=== PATIENT | female | born 1935 | race Caucasian/White ===

== ENCOUNTER 2019-06-22 09:02 | Observation (INO) ==
--- NOTE | 2019-06-22 09:22 | Emergency Department Note ---
Disposition Clinical Impression: Syncope Qualifiers: Syncope type: unspecified Qualified Code(s): R55 - Syncope and collapse Disposition: Admitted As Inpatient Condition: Good Time of Disposition: 11:02 General Adult HPI - General Chief complaint: ED Syncope Stated complaint: syncope Time Seen by Provider: 06/22/19 09:07 Source: patient, EMS Mode of arrival: EMS Limitations: no limitations Nursing Notes Reviewed: Yes Vital Signs Reviewed: Yes - History of Present Illness HPI Narrative: Patient is an 84-year-old female presenting with a syncopal episode. Patient currently stays at [facility], for the past 2-1/2 years, states that just prior to arrival arrival, she became very lightheaded and dizzy, while in her bathroom. When her bathroom she became lightheaded and dizzy, she sat down on the toilet, she then had a single episode for a few moments. Her aide came into the room, found her on the commode, then brought her to her bed. It was noted that she was slightly altered in mentation, with questionable neurological deficits. EMS was called. On EMSs arrival, patient had no neurological deficits, she was alert and oriented and patient's baseline. On arrival here, patient states that she does recall the event, she does state that she did have loss of consciousness, she did not hit her head. No recent falls or injury. She currently states she feels back to baseline with no weakness, numbness, tingling or change in sensation. Her son is here at bedside, states the patient appears to be at patient's baseline. She denies any chest pain, shortness of breath, palpitations, nausea or vomiting no abdominal pain. She does state that she has been having some dysuria and has history of UTIs. I did speak with [facility], per nursing staff, patient had an unwitnessed syncopal episode, she was found in her bathroom sitting on the toilet, unresponsive with decreased respirations, they were able to with assistance get the patient into her bed, at that point in time she stayed altered, confused, was unable to recognize others in the room, noted that her left face was slightly drooped in her left arm was slightly weak, and told this episode lasted from 5-10 minutes, by the time EMS arrived her symptoms had completely resolved. Patient's blood pressure at that time was 80/40, glucose is 123. Patient has no history of similar symptoms or episodes like this in the past. Pain Scale: 0 - Related Data Home Medications Medication Instructions Recorded Confirmed metFORMIN [Glucophage] 1,000 mg PO BID 11/09/15 06/22/19 Fludrocortisone Acetate [Florinef] 0.1 mg PO DAILY 12/19/15 06/22/19 diazePAM [Valium] 2.5 mg PO TID 12/19/15 09/09/16 traMADol [Ultram] 50 mg PO QID PRN 12/19/15 06/22/19 Ferrous Gluconate 324 mg PO DAILY 08/08/16 06/22/19 Acetaminophen [Non-Aspirin] 650 mg PO Q6H PRN 06/22/19 06/22/19 Aspirin 81 mg PO DAILY 06/22/19 06/22/19 Bacillus Coagulans/Inulin 1 each PO TID 06/22/19 06/22/19 [Probiotic with Prebiotic Caps] Diphenoxylate/Atropine [Lomotil 2 each PO QID PRN 06/22/19 06/22/19 2.5 mg/0.025 mg] Donepezil [Aricept] 10 mg PO DAILY 06/22/19 06/22/19 Guaifenesin [Mucinex] 600 mg PO BID 06/22/19 06/22/19 Ipratropium/Albuterol Neb [Duoneb] 3 ml IH Q6HR PRN 06/22/19 06/22/19 LORazepam [Ativan] 0.25 mg PO BID 06/22/19 06/22/19 Levothyroxine [Synthroid] 175 mcg PO QAM 06/22/19 06/22/19 Loperamide [Imodium] 2 mg PO Q4H PRN 06/22/19 06/22/19 Meclizine [Antivert] 12.5 mg PO TID 06/22/19 06/22/19 Potassium Chloride [Klor-Con 10] 20 meq PO DAILY 06/22/19 06/22/19 Vitamin B Complex [B Complex] 1 each PO DAILY 06/22/19 06/22/19 Previous Rx's Medication Instructions Recorded amLODIPine [Norvasc] 2.5 mg PO DAILY #30 tablet 09/12/16 Allergies Allergy/AdvReac Type Severity Reaction Status Date / Time captopril [From Capoten] Allergy See Verified 08/16/15 11:05 Comments clarithromycin [From Biaxin] Allergy See Verified 06/28/15 18:28 Comments Erythromycin Base Allergy See Verified 08/16/15 11:05 [From Erythrocin] Comments estrogens, conjugated Allergy See Verified 08/16/15 11:05 Comments gabapentin [From Neurontin] Allergy See Verified 08/16/15 11:05 Comments nitrofurantoin Allergy See Verified 08/16/15 11:05 [From Macrobid] Comments Sulfa (Sulfonamide Allergy Hives Verified 08/16/15 11:05 Antibiotics) All systems ED: reviewed and negative except as stated. Review of Systems: As Per HPI Constitutional: Denies: fever, chills ENT ED: Denies: congestion Cardiovascular: Denies: chest pain, palpitations Respiratory: Denies: cough, dyspnea, wheezes Gastrointestinal: Denies: abdominal pain, nausea, vomiting Genitourinary: Reports: dysuria. 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 No apparent distress. Follow commands. Appears stated age. Neck: No JVD. Trachea midline. Neck supple. Eyes: PERRL. No scleral icterus. HENT: Normocephalic and atraumatic. Moist mucus membranes. Cardiovascular: Regular rate and rhythm. Normal S1 and S2. No murmurs appreciated. Normal capillary refill. Extremities well perfused with 2+ distal pulses bilaterally. No edema. Pulmonary: Normal and equal breath sounds bilaterally, anteriorly and posteriorly. No wheezes, rales, or rhonchi. Not in respiratory distress. Speaks in full sentences. Abdomen: Soft, nondistended, without tenderness. No bruits or masses. No guarding or rebound. Neuro: Alert and oriented x3. No slurred speech. No focal deficits noted. Skin: No rashes noted on visualized skin. Musculoskeletal: No bony abnormalities visualized. Moves all extremities. Psych: Normal mood. Pleasant. Makes appropriate eye contact. - General General appearance: alert, in no apparent distress - Expanded Neurological Exam Patient oriented to: Present: person, place, time Cranial nerves: EOM function (II, III, IV, ): Normal, facial sensation (V): Normal, facial palsy (VII): Normal, spinal accessory function (XI): Normal, tongue deviation (XII): Normal Cerebellar function: finger to nose: Normal Motor strength - LUE: 5/5 Motor strength - RUE: 5/5 Motor strength - LLE: 5/5 Motor strength - RLE: 5/5 Upper motor neuron exam: chau neglect: Absent bilaterally, pronator drift: Absent bilaterally Sensory exam upper extremity: light touch: Normal Sensory exam lower extremity: light touch: Normal Coma Scale Eye Opening: Spontaneous Coma Scale Motor Response: Obeys Commands Coma Scale Verbal Response: Oriented Coma Scale Total: 15 - Psychiatric Psychiatric exam: Present: normal affect, normal mood - Skin Skin exam: Present: warm, dry, intact. Absent: rash Course Vital Signs Temperature 97.9 F 06/22/19 09:05 Pulse Rate 69 06/22/19 09:05 Respiratory Rate 15 06/22/19 09:05 Blood Pressure 130/51 06/22/19 09:05 O2 Sat by Pulse Oximetry 99 06/22/19 09:05 Temperature 97.9 F 06/22/19 09:05 Pulse Rate 75 06/22/19 11:54 Respiratory Rate 14 06/22/19 11:54 Blood Pressure 125/56 06/22/19 11:54 O2 Sat by Pulse Oximetry 98 06/22/19 11:54 Oxygen Delivery Oxygen Delivery Room Air Medical Decision Making - MDM Narrative Medical decision making narrative: Patient is an 84-year-old female who is presenting for syncopal episode. Patient currently residing [facility], I did speak with them and they stated the patient had a single episode, following bowel movement, when they arrived she had altered mental status with confusion lasting for 5-10 minutes, completely resolved by the time EMS had arrived. Per nursing staff, patient did have some left-sided facial droop as well as some left upper extremity weakness. On arrival here to our ER, patient is alert and oriented 3, in no acute distress, she is an NIH of 0, GCS of 15. Most likely patient had a vasovagal syncopal episode, however given report from nursing staff at [facility] the patient also had neurological deficits, concern for intracranial etiology. Laboratory work was reviewed as well as imaging including CT of the head and cxr Lab work is relatively unremarkable. CT of the head shows no acute intracranial changes. Chest x-ray shows no acute cardio or pulmonary findings. I did have discussion with the family as well as the patient regarding admission, they agree with admission for further evaluation and observation. - Medical Records Medical records reviewed: Yes I reviewed the patient's medical records. - Lab Data Lab results reviewed: Yes I reviewed the patient's lab results. Result diagrams: 06/22/19 09:26 06/22/19 09:26 Lab Results 06/22/19 06/22/19 06/22/19 Range/Units 09:26 09:26 09:26 WBC 8.9 (4.3-11.1) K/mcL RBC 3.58 L (3.82-4.97) M/mcL Hgb 11.5 (11.5-15.4) g/dL Hct 36.0 (35.3-44.9) % MCV 100.6 H (83.0-100.0) fL MCH 32.1 (28.0-33.3) pg MCHC 31.9 (31.6-35.5) g/dL RDW 12.4 (11.5-14.5) % Plt Count 258 (140-400) K/mcL MPV 8.7 L (9.4-12.4) fL Immature Gran % 0.2 (0-4) % Seg Neutrophils % 69.6 % Lymphocytes % 21.9 % Monocytes % 4.9 % Eosinophils % 3.1 % Basophils % 0.3 % Neutrophils # 6.2 (1.6-8.9) K/mcL Lymphocytes # 2.0 (0.6-4.6) K/mcL Monocytes # 0.4 (0.0-1.3) K/mcL Eosinophils # 0.3 (0.0-0.6) K/mcL Basophils # 0.0 (0.0-0.2) K/mcL PT 11.9 (9.4-12.1) Seconds INR 1.0 APTT 29.3 (26.0-36.0) Seconds Sodium 136 (136-145) mEq/L Potassium 3.6 (3.5-5.1) mEq/L Chloride 103 (98-107) mEq/L Carbon Dioxide 20 L (23-29) mEq/L BUN 19 (8-23) mg/dL Creatinine 1.15 (0.60-1.20) mg/dL Est GFR ( Amer) 55 L (> 60) Est GFR (Non-Af Amer) 45 L (> 60) BUN/Creatinine Ratio 17 (6-26) Glucose 292 H (70-105) mg/dL Calculated Osmolality 295 (280-300) Calcium 9.4 (8.6-10.3) mg/dL Troponin I < 0.03 (< 0.04) ng/mL TSH < 0.010 L (0.340-5.600) mcIU/mL Urine Color (Yellow) Urine Clarity (Clear) Urine pH (5.0-8.0) pH Units Ur Specific [place] (1.010-1.025) Urine Protein (Neg-Trace) mg/dL Urine Glucose (UA) (Normal) mg/dL Urine Ketones (Negative) mg/dL Urine Blood (Negative) Urine Nitrite (Negative) Urine Bilirubin (Negative) Urine Urobilinogen (Normal) mg/dL Ur Leukocyte Esterase (Negative) Urine Microscopic RBC (0-3) per hpf Urine Microscopic WBC (0-3) per hpf Ur Squamous Epith Cells (None-Few) per lpf Ur Renal Epithelial Cell (None-Few) per hpf Urine Bacteria (None-Few) per hpf Hyaline Casts (None-Few) per lpf 06/22/19 Range/Units 11:30 WBC (4.3-11.1) K/mcL RBC (3.82-4.97) M/mcL Hgb (11.5-15.4) g/dL Hct (35.3-44.9) % MCV (83.0-100.0) fL MCH (28.0-33.3) pg MCHC (31.6-35.5) g/dL RDW (11.5-14.5) % Plt Count (140-400) K/mcL MPV (9.4-12.4) fL Immature Gran % (0-4) % Seg Neutrophils % % Lymphocytes % % Monocytes % % Eosinophils % % Basophils % % Neutrophils # (1.6-8.9) K/mcL Lymphocytes # (0.6-4.6) K/mcL Monocytes # (0.0-1.3) K/mcL Eosinophils # (0.0-0.6) K/mcL Basophils # (0.0-0.2) K/mcL PT (9.4-12.1) Seconds INR APTT (26.0-36.0) Seconds Sodium (136-145) mEq/L Potassium (3.5-5.1) mEq/L Chloride (98-107) mEq/L Carbon Dioxide (23-29) mEq/L BUN (8-23) mg/dL Creatinine (0.60-1.20) mg/dL Est GFR ( Amer) (> 60) Est GFR (Non-Af Amer) (> 60) BUN/Creatinine Ratio (6-26) Glucose (70-105) mg/dL Calculated Osmolality (280-300) Calcium (8.6-10.3) mg/dL Troponin I (< 0.04) ng/mL TSH (0.340-5.600) mcIU/mL Urine Color Yellow (Yellow) Urine Clarity Cloudy A (Clear) Urine pH 5.0 (5.0-8.0) pH Units Ur Specific [place] 1.019 (1.010-1.025) Urine Protein Trace (Neg-Trace) mg/dL Urine Glucose (UA) 250 H (Normal) mg/dL Urine Ketones Negative (Negative) mg/dL Urine Blood Moderate H (Negative) Urine Nitrite Negative (Negative) Urine Bilirubin Negative (Negative) Urine Urobilinogen Normal (Normal) mg/dL Ur Leukocyte Esterase Large H (Negative) Urine Microscopic RBC 5-15 H (0-3) per hpf Urine Microscopic WBC TNTC H (0-3) per hpf Ur Squamous Epith Cells Moderate H (None-Few) per lpf Ur Renal Epithelial Cell Few (None-Few) per hpf Urine Bacteria None Seen (None-Few) per hpf Hyaline Casts Few (None-Few) per lpf - Radiology Data Radiology results reviewed: Yes I reviewed the patient's radiology results. Chest X-Ray 06/22/19 09:16 IMPRESSION: No acute cardiopulmonary abnormality. D/ / Enio Vega / Enio Vega Interpreting Provider: Enio Vega Chest X-Ray 06/22/19 09:16 IMPRESSION: No acute cardiopulmonary abnormality. D/ / Enio Vega / Enio Vega Interpreting Provider: Enio Vega Head CT 06/22/19 09:21 IMPRESSION: No acute intracranial abnormality. Chronic microvascular ischemic changes. Global volume loss. D/ / Sukumar Pandya / Sukumar Pandya Interpreting Provider: Sukumar Pandya - EKG Data EKG #1 EKG attestation: Yes I reviewed and interpreted this EKG. EKG results narrative: EKG performed at 0910 with a jugular rate of 67, regular rhythm, normal axis, no ST segment elevation, depression, no T-wave changes, patient does have a prolonged CT interval at 227 which appears new since last EKG. Last EKG was performed on 09/19/2016. Attestation Statement - Attestation Attestation: I, Darin Osorio, examined this patient and my medical decision-making was reviewed with the SWEEP MOLDER/PA/Advanced Practice Nurse/Resident Physician. I agree with the documented findings, disposition and treatment plan as described except to the extent set forth below. 84-year-old female presents emergency Department with concerns of syncopal epi sode. Patient states she was having a bowel movement, started to become lightheaded and pushed the call button for the nurse. The nurse found her unresponsive on the toilet, had slurred speech and facial droop with left-sided extremity weakness. This resolved within 30 minutes. The patient is back to her baseline emergency department. She states she has never syncopized while using the commode in the past. Patient denies fever, chills, nausea, vomiting, recent changes in her medications. Patient has a negative initial troponin. EKG did not show evidence of STEMI.I reviewed the EKG with the resident and agree with the interpretation. Patient will be admitted to the hospitalist for further care and evaluation.
[2019-06-22 09:38] LABS: Basophils % 0.3 %; Eosinophils # 0.3 K/mcL (0.0-0.6); Eosinophils % 3.1 %; Hemoglobin 11.5 g/dL (11.5-15.4); Immature Granulocytes % 0.2 % (0-4); Lymphocytes % 21.9 %; Mean Corpuscular HGB Conc 31.9 g/dL (31.6-35.5); Mean Corpuscular Hemoglobin 32.1 pg (28.0-33.3); Mean Corpuscular Volume 100.6 fL (83.0-100.0); Mean Platelet Volume 8.7 fL (9.4-12.4); Monocytes # 0.4 K/mcL (0.0-1.3); Monocytes % 4.9 %; Neutrophils # 6.2 K/mcL (1.6-8.9); Platelet Count 258 K/mcL (140-400); Red Blood Count 3.58 M/mcL (3.82-4.97); Red Cell Distribution Width 12.4 % (11.5-14.5); Segmented Neutrophils % 69.6 %; White Blood Count 8.9 K/mcL (4.3-11.1)
[2019-06-22 09:49] LABS: Prothrombin Time 11.9 Seconds (9.4-12.1)
[2019-06-22 09:51] LABS: Activated Partial Thrombo Time 29.3 Seconds (26.0-36.0)
[2019-06-22 09:57] LABS: BUN/Creatinine Ratio 17 (6-26); Blood Urea Nitrogen 19 mg/dL (8-23); Calcium 9.4 mg/dL (8.6-10.3); Carbon Dioxide 20 mEq/L (23-29); Chloride 103 mEq/L (98-107); Glucose 292 mg/dL (70-105); Osmolality,Calculated 295 (280-300); Potassium 3.6 mEq/L (3.5-5.1); Sodium 136 mEq/L (136-145); eGFR For African Americans 55 (> 60); eGFR For Non-African Americans 45 (> 60)
[2019-06-22 09:58] LABS: Troponin I < 0.03 ng/mL (< 0.04)
[2019-06-22 10:17] LABS: Thyroid Stimulating Hormone < 0.010 mcIU/mL (0.340-5.600)
[2019-06-22 11:47] LABS: Bilirubin,Urine Negative (Negative); Blood,Urine Moderate (Negative); Clarity,Urine Cloudy (Clear); Color,Urine Yellow (Yellow); Glucose,Urine (UA) 250 mg/dL (Normal); Ketones,Urine Negative (Negative); Leukocyte Esterase,Urine Large (Negative); Nitrite,Urine Negative (Negative); Protein,Urine Trace mg/dL (Neg-Trace); Specific Gravity,Urine 1.019 (1.010-1.025); Urobilinogen,Urine Normal (Normal)
[2019-06-22 11:48] LABS: Bacteria,Urine None Seen per hpf (None-Few); Hyaline Casts,Urine Few per lpf (None-Few); Squamous Epithelial Cell,Urine Moderate per lpf (None-Few); WBC,Urine TNTC per hpf (0-3)
[2019-06-22 12:02] LABS: Renal Epithelial Cells,Urine Few per hpf (None-Few)
[2019-06-22] MEDS ORDERED: Acetaminophen 325 MG TABLET PO PRN (15:51)
[2019-06-22] MEDS ORDERED: *HR* HYDROcodone/Acet 5/325 mg TABLET PO PRN (15:51)
[2019-06-22] MEDS ORDERED: Naloxone 0.4 MG/ML INJ IVP PRN (15:51)
[2019-06-22] MEDS ORDERED: Ipratropium/Albuterol Neb 3 ML IH PRN (15:56)
[2019-06-22] MEDS ORDERED: Diphenoxylate/Atropine 1 TAB TABLET PO PRN (15:56)
[2019-06-22] MEDS ORDERED: Ondansetron 4 MG/2 ML VIAL IVP PRN (16:00)
--- NOTE | 2019-06-22 16:23 | Internal Med History&Physical ---
Date of Encounter: 06/22/19 Time of Encounter: 16:18 Internal Medicine - H&P: HPI Chief complaint: Syncope Admitted From: Long-term Nursing Facility Plans for Post Hospital Care: Transfer [facility] Facility History of present illness: Ms. Bruce is a 84 year old female with a known past medical history of hyperten romy, hyperlipidemia, orthostatic hypotension on florinef, chronic diastolic CHF, anxiety and diabetes who is a long-term resident at [facility] patient was brought into the ER after patient was found to have a syncopal episode. As per patient when she went to bathroom she felt lightheaded and dizzy, sat down on the toilet and passed out. When the aide found her next to commode, she was little confused too. Also pt c/o some weakness on Rt side. In the ER her CT of Head showed no acute intracranial abnormality. Patient also complained about burning micturition. She denied any CP / SOB. Past Med Surg Social Fam HX - Past Medical History Medical history: arthritis, atrial fibrillation, CHF, coronary artery disease, diabetes, GERD, hyperlipidemia, hypertension, renal disease, thyroid disease, other Additional medical history: anemia, vertigo Psychiatric history: anxiety, bipolar, depression - Past Surgical History Surgical History: cholecystectomy - Social History Smoking Status: Never smoker Smokeless Tobacco Status: No Alcohol use: none Drug use: none - Family History Father Age: 60 Living Status: Hx Family Cardiac Disorders: Yes (DVT) Mother Living Status: Cause of : age related Hx Family Neuromuscular Disorders: Yes (mastoid tumor) Hx Family Autoimmune Disorders: Yes (arthritis) Internal Medicine - H&P: Meds metFORMIN [Glucophage] 1,000 mg PO BID 11/09/15 [History] Fludrocortisone Acetate [Florinef] 0.1 mg PO DAILY 12/19/15 [History] diazePAM [Valium] 2.5 mg PO TID 12/19/15 [History] traMADol [Ultram] 50 mg PO QID PRN 12/19/15 [History] Ferrous Gluconate 324 mg PO DAILY 08/08/16 [History] amLODIPine [Norvasc] 2.5 mg PO DAILY #30 tablet 09/12/16 [Rx] Acetaminophen [Non-Aspirin] 650 mg PO Q6H PRN 06/22/19 [History] Aspirin 81 mg PO DAILY 06/22/19 [History] Bacillus Coagulans/Inulin [Probiotic with Prebiotic Caps] 1 each PO TID 06/22/19 [History] Diphenoxylate/Atropine [Lomotil 2.5 mg/0.025 mg] 2 each PO QID PRN 06/22/19 [History] Donepezil [Aricept] 10 mg PO DAILY 06/22/19 [History] Guaifenesin [Mucinex] 600 mg PO BID 06/22/19 [History] Ipratropium/Albuterol Neb [Duoneb] 3 ml IH Q6HR PRN 06/22/19 [History] LORazepam [Ativan] 0.25 mg PO BID 06/22/19 [History] Levothyroxine [Synthroid] 175 mcg PO QAM 06/22/19 [History] Loperamide [Imodium] 2 mg PO Q4H PRN 06/22/19 [History] Meclizine [Antivert] 12.5 mg PO TID 06/22/19 [History] Potassium Chloride [Klor-Con 10] 20 meq PO DAILY 06/22/19 [History] Vitamin B Complex [B Complex] 1 each PO DAILY 06/22/19 [History] Allergy/AdvReac Type Severity Reaction Status Date / Time captopril [From Capoten] Allergy See Verified 08/16/15 11:05 Comments clarithromycin [From Biaxin] Allergy See Verified 06/28/15 18:28 Comments Erythromycin Base Allergy See Verified 08/16/15 11:05 [From Erythrocin] Comments estrogens, conjugated Allergy See Verified 08/16/15 11:05 Comments gabapentin [From Neurontin] Allergy See Verified 08/16/15 11:05 Comments nitrofurantoin Allergy See Verified 08/16/15 11:05 [From Macrobid] Comments Sulfa (Sulfonamide Allergy Hives Verified 08/16/15 11:05 Antibiotics) All Systems PM: A 10-system review of systems was performed and is negative for pertinent findings except as documented above in the HPI. Review of systems: All the systems are reviewed everything is benign except the systems and sympt oms I mentioned in the history of present illness - Constitutional Vitals: Temp Pulse Resp BP Pulse Ox 97.8 F 67 16 128/68 96 06/22/19 15:07 06/22/19 15:07 06/22/19 15:07 06/22/19 15:07 06/22/19 15:07 General appearance: Present: cooperative, A&O X 3, no acute distress, answers questions appropriately Exam: a - Head Head exam: Present: atraumatic, normal inspection - Neck Neck exam general surgery: Present: normal inspection, supple - Respiratory Respiratory exam: Present: decreased breath sounds. Absent: rales, respiratory distress, rhonchi, wheezes - Cardiovascular Cardiovascular exam: Present: RRR, +S1, +S2. Absent: tachycardia - GI/Abdominal GI/Abdominal exam: Present: normal bowel sounds, soft. Absent: rebound, rigid, tenderness - Extremities Exam Extremities exam: Present: normal inspection. Absent: calf tenderness, tenderness - Back Exam Back exam: Absent: CVA tenderness (L), CVA tenderness (R) - Neurological Exam Neurological exam: Present: alert, CN II-XII intact, oriented X3, strengths equal and symetr throughout (strength 4/5). Absent: pronater drift, facial droop, speech deficit - Psychiatric Psychiatric exam: Present: normal affect, normal mood - Skin Skin exam: Absent: rash Internal Med - H&P Results - Labs CBC & Chem 7: 06/22/19 09:26 06/22/19 09:26 Labs: Short CBC 06/22/19 Range/Units 09:26 WBC 8.9 (4.3-11.1) K/mcL Hgb 11.5 (11.5-15.4) g/dL Hct 36.0 (35.3-44.9) % Plt Count 258 (140-400) K/mcL Neutrophils # 6.2 (1.6-8.9) K/mcL BMP 06/22/19 09:26 Sodium 136 Potassium 3.6 Chloride 103 Carbon Dioxide 20 L BUN 19 Creatinine 1.15 Glucose 292 H Calcium 9.4 Cardiac Enzymes 06/22/19 Range/Units 09:26 Troponin I < 0.03 (< 0.04) ng/mL Urine 06/22/19 Range/Units 11:30 Urine Color Yellow (Yellow) Urine Clarity Cloudy A (Clear) Urine pH 5.0 (5.0-8.0) pH Units Ur Specific [place] 1.019 (1.010-1.025) Urine Protein Trace (Neg-Trace) mg/dL Urine Glucose (UA) 250 H (Normal) mg/dL - Impressions ITS Impressions Chest X-Ray 06/22/19 09:16 IMPRESSION: No acute cardiopulmonary abnormality. D/ / Enio Vega / Enio Vega Interpreting Provider: Enio Vega Head CT 06/22/19 09:21 IMPRESSION: No acute intracranial abnormality. Chronic microvascular ischemic changes. Global volume loss. D/ / Sukumar Pandya / Sukumar Pandya Interpreting Provider: Sukumar Pandya - Assessment and Plan (1) Syncope Current Visit: Yes Status: Acute Assessment and plan: Will place the pt into Tele for observation Pt's Syncope seems to be more like vasovagal reaction / ortho static however still need to r/o ACS vs Arrhythmia will place the pt on equipment monitor phototypesetting check serial troponin so far negative trop Cont ASA will get 2 D echo and Carotid Doppler in AM Will check FLP in AM Will check ortho stat vitals Started on IV fluids Qualifiers: Syncope type: unspecified Qualified Code(s): R55 - Syncope and collapse (2) Right sided weakness Current Visit: Yes Status: Acute Assessment and plan: Pt denied any weakness her Neuro exam was also benign however with syncope will get MRI of Brain to r.o acute CVA (3) UTI (urinary tract infection) Current Visit: No Status: Acute Assessment and plan: UA - slightly abnormal urine cx - P started her on empirical antibiotic IV Rocephin Qualifiers: Urinary tract infection type: site unspecified Hematuria presence: without hematuria Qualified Code(s): N39.0 - Urinary tract infection, site not specified (4) Diabetes Current Visit: No Status: Chronic Assessment and plan: on ADA diet on ISS Qualifiers: Diabetes mellitus type: type 2 Diabetes mellitus terminal manager insulin use: without terminal manager use Diabetes mellitus complication status: without complication Qualified Code(s): E11.9 - Type 2 diabetes mellitus without complications (5) HTN (hypertension) Current Visit: No Status: Chronic Assessment and plan: Resumed all her home medications Qualifiers: Hypertension type: essential hypertension Qualified Code(s): I10 - Essential (primary) hypertension (6) Physical deconditioning Current Visit: No Status: Chronic Assessment and plan: PT/OT eval (7) DVT prophylaxis Current Visit: No Status: Acute Assessment and plan: On SQ heparin - Time Spent With Patient Total time spent is greater than 50% in coordination of care (as documented) at patient's floor/unit and/or counseling patient:
[2019-06-22] MEDS: 0.9 % Sodium Chloride 1,000 ML IVC SCH (16:25)
[2019-06-22] MEDS ORDERED: Dextrose Gel 15 GM/37.5 ML TUBE PO PRN ×2 (16:30)
[2019-06-22] MEDS ORDERED: *HR* Dextrose 50 % in Water (Syg) 50 ML SYRINGE IVP PRN (16:30)
[2019-06-22] MEDS ORDERED: D5% in Water 1,000 ML IVC PRN (16:30)
[2019-06-22 17:03] LABS: Estimated Average Glucose 166 mg/dl
[2019-06-22 17:10] LABS: Triiodothyronine (T3) Total 0.98 ng/mL (0.87-1.78)
[2019-06-22] MEDS: Insulin LISPRO 300 UNITS/3 ML VIAL SQ SCH (17:24)
[2019-06-22] MEDS ORDERED: Perflutren Lipid Microsphere 1.3 ML in 0.9 % Sodium Chloride 8.7 ML IVP ONE (19:26)
[2019-06-22] MEDS ORDERED: Insulin LISPRO 300 UNITS/3 ML VIAL SQ SCH (21:00)
[2019-06-22] MEDS: *HR* LORazepam 0.5 MG TABLET PO SCH (22:10)
[2019-06-23 04:05] LABS: Hematocrit 32.3 % (35.3-44.9); Hemoglobin 10.7 g/dL (11.5-15.4); Mean Corpuscular HGB Conc 33.1 g/dL (31.6-35.5); Mean Corpuscular Hemoglobin 32.7 pg (28.0-33.3); Mean Corpuscular Volume 98.8 fL (83.0-100.0); Mean Platelet Volume 8.5 fL (9.4-12.4); Platelet Count 260 K/mcL (140-400); Red Blood Count 3.27 M/mcL (3.82-4.97); Red Cell Distribution Width 12.5 % (11.5-14.5); White Blood Count 8.9 K/mcL (4.3-11.1)
[2019-06-23 04:29] LABS: BUN/Creatinine Ratio 19 (6-26); Blood Urea Nitrogen 18 mg/dL (8-23); Calcium 8.9 mg/dL (8.6-10.3); Carbon Dioxide 22 mEq/L (23-29); Chloride 108 mEq/L (98-107); Chol/HDL Ratio 3.5 (0-4.9); Cholesterol 125 mg/dL (< 200); Glucose 133 mg/dL (70-105); HDL Cholesterol 36 mg/dL (40-59); LDL Cholesterol,Calculated 68 mg/dL (0-99); Magnesium 1.5 mg/dL (1.6-2.6); Osmolality,Calculated 296 (280-300); Potassium 3.8 mEq/L (3.5-5.1); Sodium 141 mEq/L (136-145); Triglycerides 104 mg/dL (< 150); eGFR For African Americans > 60 (> 60); eGFR For Non-African Americans 56 (> 60)
--- NOTE | 2019-06-23 05:13 | Event Note ---
Date of Encounter: 06/22/19 Time of Encounter: 22:29 Alerted by patient's nurse TAWANDA Valle that patient's CODE STATUS was listed as full code. Paperwork from [facility] as well as patient's family stated she is a DNRCCA. Nurse instructed to contact [facility] for copy of the paperwork. Paperwork was faxed which I reviewed. Patient listed as DNRCCA. CODE STATUS changed to DNRCCA. Nurse informed of the status change.
[2019-06-23] MEDS: 0.9 % Sodium Chloride 1,000 ML IVC SCH (06:24)
[2019-06-23] MEDS: Insulin LISPRO 300 UNITS/3 ML VIAL SQ SCH ×2 (07:56→12:39)
[2019-06-23] MEDS: *HR* LORazepam 0.5 MG TABLET PO SCH (08:57)
[2019-06-23] MEDS ORDERED: Aspirin 81 MG TAB.CHEW PO SCH (09:00)
[2019-06-23] MEDS ORDERED: Lactobacillus 1 EACH CAP.SPRINK PO SCH (09:00)
[2019-06-23] MEDS ORDERED: amLODIPine 5 MG TABLET PO SCH (09:00)
[2019-06-23] MEDS ORDERED: Vitamin B Complex/Vit C/Vit E 1 EACH TABLET PO SCH (09:00)
--- NOTE | 2019-06-23 14:04 | Discharge Summary ---
- NOTES TO OUTPATIENT PROVIDER Notes to Outpatient Provider: Patient was admitted to the hospital due to syncope. Patient will place in observation status. Patient initial workup including MRI of his head, echocardiogram, EKG, carotid Doppler was negative for any acute abnormality. Patient's UA was positive for leuk esterase. Patient will be discharged on Bactrim DS BID for 3 days. Patient has a history of previous to iodine ablation of her thyroid and she is on replacement therapy. Patient taking Synthroid 175 g at home. Patient's TSH level was low and T4 level was high. Patient was advised to start Synthroid at lower dose. Patient will go to same SNF that she came from. Orders not resulted at time of discharge: Pending orders 06/22/19 11:30 Culture,Urine [RM] Stat Estimated PT Needs at Discharge: SNF/ECF Date of Encounter: 06/23/19 Time of Encounter: 14:01 - Discharge Diagnosis (1) Syncope Priority: Primary Status: Acute Qualifiers: Syncope type: unspecified Qualified Code(s): R55 - Syncope and collapse (2) UTI (urinary tract infection) Priority: Secondary Status: Acute Qualifiers: Urinary tract infection type: site unspecified Hematuria presence: without hematuria Qualified Code(s): N39.0 - Urinary tract infection, site not specified (3) HTN (hypertension) Priority: Secondary Status: Chronic Qualifiers: Hypertension type: essential hypertension Qualified Code(s): I10 - Ess ential (primary) hypertension (4) Diabetes Priority: Secondary Status: Chronic Qualifiers: Diabetes mellitus type: type 2 Diabetes mellitus halfway insulin use: without halfway use Diabetes mellitus complication status: without complication Qualified Code(s): E11.9 - Type 2 diabetes mellitus without complications (5) DVT prophylaxis Priority: Secondary Status: Acute (6) Physical deconditioning Priority: Secondary Status: Chronic (7) Right sided weakness Priority: Secondary Status: Acute Hospital course: Ms. Bruce is a 84 year old female Patient was admitted to the hospital due to syncope. Patient will place in observation status. Patient initial workup including MRI of his head, echocardiogram, EKG, carotid Doppler was negative for any acute abnormality. Patient's UA was positive for leuk esterase. Patient will be discharged on Bactrim DS BID for 3 days. Patient has a history of previous to iodine ablation of her thyroid and she is on replacement therapy. Patient taking Synthroid 175 g at home. Patient's TSH level was low and T4 level was high. Patient was advised to start Synthroid at lower dose at 100 mcg daily. Patient will go to same SNF that she came from. Discharge discussed with: patient, nurse, social work, case management - Time Spent with Patient Total time spent providing and/or coordinating discharge services: 35 Time spent: Greater than 30 minutes - Discharge Medications Prescriptions: New Sulfamethoxazole/Trimeth DS [Bactrim DS] 1 each PO BID 3 Days #6 tablet Continued metFORMIN [Glucophage] 1,000 mg PO BID Fludrocortisone Acetate [Florinef] 0.1 mg PO DAILY Ferrous Gluconate 324 mg PO DAILY amLODIPine [Norvasc] 2.5 mg PO DAILY #30 tablet Guaifenesin [Mucinex] 600 mg PO BID LORazepam [Ativan] 0.25 mg PO BID Potassium Chloride [Klor-Con 10] 20 meq PO DAILY Vitamin B Complex [B Complex] 1 each PO DAILY Meclizine [Antivert] 12.5 mg PO TID Loperamide [Imodium] 2 mg PO Q4H PRN PRN Reason: Diarrhea Ipratropium/Albuterol Neb [Duoneb] 3 ml IH Q6HR PRN PRN Reason: MALOU Donepezil [Aricept] 10 mg PO DAILY Diphenoxylate/Atropine [Lomotil 2.5 mg/0.025 mg] 2 tab PO QID PRN PRN Reason: GERD Bacillus Coagulans/Inulin [Probiotic with Prebiotic Caps] 1 tab PO TID Aspirin 81 mg PO DAILY Acetaminophen [Non-Aspirin] 650 mg PO Q6H PRN PRN Reason: Pain Tramadol HCl [Ultram] 50 mg PO Q6H PRN PRN Reason: Mild To Moderate Pain Changed Levothyroxine [Synthroid] 100 mcg PO QAM 14 Days #14 tablet Home Medications: metFORMIN [Glucophage] 1,000 mg PO BID 11/09/15 [History] Fludrocortisone Acetate [Florinef] 0.1 mg PO DAILY 12/19/15 [History] Ferrous Gluconate 324 mg PO DAILY 08/08/16 [History] amLODIPine [Norvasc] 2.5 mg PO DAILY #30 tablet 09/12/16 [Rx] Acetaminophen [Non-Aspirin] 650 mg PO Q6H PRN 06/22/19 [History] Aspirin 81 mg PO DAILY 06/22/19 [History] Bacillus Coagulans/Inulin [Probiotic with Prebiotic Caps] 1 tab PO TID 06/22/19 [History] Diphenoxylate/Atropine [Lomotil 2.5 mg/0.025 mg] 2 tab PO QID PRN 06/22/19 [History] Donepezil [Aricept] 10 mg PO DAILY 06/22/19 [History] Guaifenesin [Mucinex] 600 mg PO BID 06/22/19 [History] Ipratropium/Albuterol Neb [Duoneb] 3 ml IH Q6HR PRN 06/22/19 [History] LORazepam [Ativan] 0.25 mg PO BID 06/22/19 [History] Loperamide [Imodium] 2 mg PO Q4H PRN 06/22/19 [History] Meclizine [Antivert] 12.5 mg PO TID 06/22/19 [History] Potassium Chloride [Klor-Con 10] 20 meq PO DAILY 06/22/19 [History] Vitamin B Complex [B Complex] 1 each PO DAILY 06/22/19 [History] Levothyroxine [Synthroid] 100 mcg PO QAM 14 Days #14 tablet 06/23/19 [Rx] Sulfamethoxazole/Trimeth DS [Bactrim DS] 1 each PO BID 3 Days #6 tablet 06/23/19 [Rx] Tramadol HCl [Ultram] 50 mg PO Q6H PRN 06/23/19 [History] Allergies/Adverse Reactions: Allergy/AdvReac Type Severity Reaction Status Date / Time captopril [From Capoten] Allergy See Verified 06/23/19 07:46 Comments clarithromycin [From Biaxin] Allergy See Verified 06/23/19 07:46 Comments Erythromycin Base Allergy See Verified 06/23/19 07:46 [From Erythrocin] Comments estrogens, conjugated Allergy See Verified 06/23/19 07:46 Comments gabapentin [From Neurontin] Allergy See Verified 06/23/19 07:46 Comments nitrofurantoin Allergy See Verified 06/23/19 07:46 [From Macrobid] Comments Sulfa (Sulfonamide Allergy Hives Verified 06/23/19 07:46 Antibiotics) Date of admission: 06/22/19 13:41 Primary care physician: Gene Badillo MD Consults: 06/22/19 15:53 Consult to Occupational Therapy [CONS] Routine Comment: Evaluate, develop and implement POC Reason for Consult: Physical deconditioning Does patient have active BEDREST order?: No Is patient medically & hemodynamically stable?: Yes Patient assessed for mobility or mobilized this visit?: Yes Consult to Physical Therapy [CONS] Routine Comment: Evaluate, develop and implement POC Reason for Consult: Physical deconditioning Does patient have active BEDREST order?: No Is patient medically & hemodynamically stable?: Yes Patient assessed for mobility or mobilized this visit?: Yes Discharging clinician: Sumanth Gracia - Constitutional Vitals: Temp Pulse Resp BP Pulse Ox 98.0 F 63 20 156/92 94 06/23/19 12:13 06/23/19 12:13 06/23/19 12:13 06/23/19 12:13 06/23/19 12:13 General appearance: Present: cooperative, A&O X 3, no acute distress, answers questions appropriately Exam: General: A & O 3, In no acute distress HENNT: PERRLA. Head atraumatic and makes supple CVS S1 and S2 regular, no murmur RS: Clear to air entry bilaterally, no wheeze, no crackles Abdomen: Soft and nontender. Bowel sounds normal 4 Extremities: No cyanosis, clubbing, and edema Neurology: Cranial II-XII normal. Motor strength 5/5 bilaterally. Sensation intact - Patient Status Disposition: Transfer SNF Overall status at discharge: patient is progressing back to baseline - Discharge Instructions Follow Up With: Gene Badillo MD [Primary Care Provider] - - Diet and Activity Activity: as per physical therapy, increase activity as tolerated Diet: diabetic diet, low salt diet
--- NOTE | 2019-06-23 14:12 | Physician Discharge Referral ---
ExtendedCare Referral Info Transfer To: SNF Provider in Charge after Transfer: PCP - Diagnosis (1) Syncope Priority: Primary Status: Acute (2) UTI (urinary tract infection) Priority: Secondary Status: Acute (3) HTN (hypertension) Priority: Secondary Status: Chronic (4) Diabetes Priority: Secondary Status: Chronic (5) DVT prophylaxis Priority: Secondary Status: Acute (6) Physical deconditioning Priority: Secondary Status: Chronic (7) Right sided weakness Priority: Secondary Status: Acute Prognosis: Good Aware of Diagnosis: Patient Aware of Prognosis: Patient - Transfer Medications Prescriptions: Sulfamethoxazole/Trimeth DS [Bactrim DS] 1 each PO BID 3 Days #6 tablet Levothyroxine [Synthroid] 100 mcg PO QAM 14 Days #14 tablet Home Medications: metFORMIN [Glucophage] 1,000 mg PO BID 11/09/15 [History] Fludrocortisone Acetate [Florinef] 0.1 mg PO DAILY 12/19/15 [History] Ferrous Gluconate 324 mg PO DAILY 08/08/16 [History] amLODIPine [Norvasc] 2.5 mg PO DAILY #30 tablet 09/12/16 [Rx] Acetaminophen [Non-Aspirin] 650 mg PO Q6H PRN 06/22/19 [History] Aspirin 81 mg PO DAILY 06/22/19 [History] Bacillus Coagulans/Inulin [Probiotic with Prebiotic Caps] 1 tab PO TID 06/22/19 [History] Diphenoxylate/Atropine [Lomotil 2.5 mg/0.025 mg] 2 tab PO QID PRN 06/22/19 [History] Donepezil [Aricept] 10 mg PO DAILY 06/22/19 [History] Guaifenesin [Mucinex] 600 mg PO BID 06/22/19 [History] Ipratropium/Albuterol Neb [Duoneb] 3 ml IH Q6HR PRN 06/22/19 [History] LORazepam [Ativan] 0.25 mg PO BID 06/22/19 [History] Loperamide [Imodium] 2 mg PO Q4H PRN 06/22/19 [History] Meclizine [Antivert] 12.5 mg PO TID 06/22/19 [History] Potassium Chloride [Klor-Con 10] 20 meq PO DAILY 06/22/19 [History] Vitamin B Complex [B Complex] 1 each PO DAILY 06/22/19 [History] Levothyroxine [Synthroid] 100 mcg PO QAM 14 Days #14 tablet 06/23/19 [Rx] Sulfamethoxazole/Trimeth DS [Bactrim DS] 1 each PO BID 3 Days #6 tablet 06/23/19 [Rx] Tramadol HCl [Ultram] 50 mg PO Q6H PRN 06/23/19 [History] Allergies/Adverse Reactions: Allergy/AdvReac Type Severity Reaction Status Date / Time captopril [From Capoten] Allergy See Verified 06/23/19 07:46 Comments clarithromycin [From Biaxin] Allergy See Verified 06/23/19 07:46 Comments Erythromycin Base Allergy See Verified 06/23/19 07:46 [From Erythrocin] Comments estrogens, conjugated Allergy See Verified 06/23/19 07:46 Comments gabapentin [From Neurontin] Allergy See Verified 06/23/19 07:46 Comments nitrofurantoin Allergy See Verified 06/23/19 07:46 [From Macrobid] Comments Sulfa (Sulfonamide Allergy Hives Verified 06/23/19 07:46 Antibiotics) - Respiratory Orders Smoking Cessation: Smoking cessation has been advised. For more information, call the [place] Tobacco Quit Line at 2-723-BHPX-NOW. - Ancillary Orders May use pressure relief devices daily prn - Rehabiliation Orders Rehab Potential: Good Rehab Orders: ROM Exercises, Evaluation for Physical Therapy, Evaluation for Occupational Therapy - Treatments Skin tear care topically daily PRN per policy - Diet Orders No Added Salt (ZINA), Cardiac CERTIFICATION: I certify that the transfer of the above named patient to an Extended Care Facility is necessary for the continuing treatment of the diagnosis listed. The above information is true and accurate reflection of patient's current condition. Confidential - Redisclosure prohibited without a patient's written consent.
[2019-06-23 15:10] VITALS: BP 147/72
--- NOTE | 2019-06-25 23:57 | Electrocardiograph Report ---
[facility] Test Date: 2019-06-22 Pat Name: Marisabel Bruce Department: [id number] Room: 3A16 Gender: F [employer] Supervisor: : [id number] Requested By: Darin Osorio Order Number: [id number] Reading MD: Monica Lainez Measurements Intervals [place] Rate: 67 P: 35 NH: 227 QRS: 18 QRSD: 98 T: 70 QT: 417 QTc: 441 Interpretive Statements Sinus rhythm Prolonged NH interval Borderline low voltage, extremity leads Electronically Signed On 06-25-2019 23:56:04 EDT by Monica Lainez
== END 2019-06-23 16:58 ==
LOC: EMEROOARM 09:02 → 3ANU 09:02 → SUATTDRO 13:41 → 3ANU 14:34
PROVIDERS: ADMIT Internal Medicine; ATTEND Family Medicine